=== PATIENT | male | born 1950 | race Caucasian/White ===

== ENCOUNTER → 2018-02-16 | Outpatient (CLI) | payer MEDICARE | END | disposition home or self-care (01) | LOC: CARD 10:24 | PROVIDERS: ATTEND Family Medicine | DX: G60.9 Hereditary and idiopathic neuropathy, unspecified (principal) | CPT/HCPCS: 95886; 95909 ==

== ENCOUNTER 2018-04-26 08:50 | Outpatient (CLI) | payer MEDICARE | END 2018-04-26 23:59 | disposition home or self-care (01) | LOC: RAD 08:50 | PROVIDERS: ATTEND Family Medicine | DX: Z13.6 Encounter for screening for cardiovascular disorders (principal); Z87.891 Personal history of nicotine dependence | CPT/HCPCS: 76706; 93978 ==